=== PATIENT | male | born 1995 ===

== ENCOUNTER 2020-12-18 10:08 | Outpatient (CLI) | payer OTHER ==
[2020-12-18 10:44] VITALS: BP 103/70
--- NOTE | 2020-12-18 10:44 | SLEEP CARE CONSULTATION ---
Information from patient questionnaire entered by Belgica Das. I have reviewed and concur with the information entered by Belgica Das. This document represents the service I personally performed and the decisions made by me, Vanessa Olivia ARNP. History of Present Illness Service Date and Time: 12/18/2020 1008 Reason for Visit: New patient Chief Complaint: reports: Unrefreshed sleep, Snoring, Observed pauses in breathing, Fatigue Date of Onset: 2 years Usual bedtime: varies Time it takes to fall asleep: varies greatly Snores at night: Yes Observed to quit breathing while asleep: Yes Sleeps alone due to snoring: No Number of times waking at night: 0 Reasons for waking at night: reports: Gasping for air. denies: Choking, Snoring Toss, Turn, or Twitch while sleeping: Yes Recalls having dreams: No Usually gets out of bed at: varies Feels refreshed in the morning: No Morning headache: Yes (almost every day he wakes up) Sleepy or fatigued during the day: Yes Ever fallen asleep while driving: No Takes day naps: Yes (rarely) Dreams during day naps: No Prior sleep studies: No Additional HPI information: I had the pleasure of seeing ROMINA BOURNE today regarding the possibility of him having a sleep disorder. His current complaints are unrefreshed sleep, observed pauses in breathing and fatigue. He states that his is telling him that nearly every night he is stopping snoring and having pauses in his breathing. He is always tired and does not ever feel like he has been able to get a good night's sleep. He does have attention deficit disorder but is not on any medic ations. He states his mother just got diagnosed with sleep apnea and was started on a machine. - Parasomnia Symptoms Ever been unable to move upon waking from sleep: No Walks in sleep: No Talks in sleep: Yes Ever acted out dreams in sleep: No Ever felt weak in the knees when startled or emotional: No Bothered by creepy, crawly, restless sensations in legs: No Problems with memory or concentration: No Subjective Initial [place] Sleepiness Scale score: 8 (in 2020) Past Medical History Past Medical History: reports: Attention deficit. denies: Hypertension, Diabetes, Arrythmia, Anxiety, Depression, Mood disorder, GERD Social History The patient's occupation is active . Patient is and lives in [place]. Have you smoked in the past 12 months: Yes Cigarettes per day (20/pack): 4 Years of smokin Smoking Pack Years: 1.0 Alcohol use: Yes Alcohol amount and frequency: 6, once/month Caffeine use: Yes Caffeine amount and frequency: daily, 2 cups a day Family History Family history of sleep disordered breathing: Yes Family Hx Sleep Apnea: Mother: Snoring, Sleep apnea - Treated Allergies and Home Medications Drug allergies reviewed: Yes (NKDA) Home medication list reviewed: Yes (no medications) Review of Systems Weight gain over past 5 years: 0 Weight loss over past 5 years: 0 Cardiovascular: denies: high blood pressure Respiratory: denies: shortness of breath Gastrointestinal: denies: heartburn Neurological: reports: headaches Psychiatric: denies: anxiety, depression Ear/Nose/Throat: reports: nasal congestion (always a little from allergies), dry mouth/throat (every morning, wakes up with "terrible" dry mouth; his tonsils is also swollen occasionally), wisdom teeth removed. denies: injury to nose, tonsillectomy Immunologic: reports: allergies to food or environment Physical Exam Blood Pressure: 103/70 Cuff size: wrist Heart Rate: 55 O2 Saturation: 97 Height: 5 ft 11 in Weight: 224 lb Body Mass Index: 31.2 BMI Classification: Obese Neck circumference: 16.25 (inches) Nostrils: patent to airflow Turbinates: swollen Mouth and throat: narrow oropharynx Soft palate: long Hard palate: normal Uvula: normal Uvula visualization: 50% Mallampati Class II Tongue: enlarged in size with teeth badillo on lateral edges Tonsils: 2+ Chin and jaw: Retrognathia (mild) Neck: normal w/o lymphadenopathy or thyromegaly Heart: regular rate and rhythm Lungs: clear bilaterally Impression and Plan 1. Suspected Obstructive Sleep Apnea-Hypopnea Syndrome, as suggested by a history of loud and irregular snoring, observed cessation of breath while asleep, gasping or choking in sleep, morning headache, unrefreshed sleep, and excessive daytime sleepiness. Narrow oropharynx and obesity are common predisposing factors for obstructive sleep apnea-hypopnea syndrome. I recommend proceeding to polysomnography to confirm the diagnosis and to assess severity. If the patient has significant sleep disordered breathing, a manual CPAP titration study will also be performed to find the optimal treatment pressure. I informed the patient of what the sleep studies involve and after some discussion, obtained agreement to proceed. The pathophysiology of obstructive sleep apnea-hypopnea syndrome was discussed with the patient and health risks of cardiovascular and cerebrovascular disease if not treated. [facility] brochure for o bstructive sleep apnea-hypopnea syndrome given and reviewed. Risks of drowsy driving discussed in detail and patient advised to avoid long distance driving and to head well puller at the first sign of drowsiness. Patient agreed to plan. * Schedule polysomnography +- manual CPAP titration study and return in 1-2 weeks after the study to discuss result and initiate therapy. * Avoid long distance driving or driving when feeling sleepy. * Avoid alcohol, sedative and muscle relaxant around bedtime. * Attempt to lose weight. * Review instructions provided by trained office staff on how to prepare for the sleep study. * Return for follow-up after sleep study completed. Counseling Topics: Weight loss health impact Visit Type: In Office Time Spent with Patient (minutes): 30 Provider Statement: I spent 100% of the Face to Face Visit with the patient with greater than 50% spent counseling the patient and coordination of care.
== END 2020-12-18 10:09 | disposition home or self-care (01) ==
LOC: SC 10:08
PROVIDERS: ATTEND Nurse Practitioner Family
DX: R06.83 Snoring (principal); R06.81 Apnea, not elsewhere classified; R51.9 Headache, unspecified; G47.10 Hypersomnia, unspecified; E66.9 Obesity, unspecified; Z68.31 Body mass index [BMI] 31.0-31.9, adult
CPT/HCPCS: 99203; 99212

== ENCOUNTER 2021-01-03 15:30 | Outpatient (CLI) | payer OTHER | END 2021-01-03 15:31 | disposition home or self-care (01) | LOC: SC 15:30 | PROVIDERS: ATTEND Nurse Practitioner Family | DX: G47.33 Obstructive sleep apnea (adult) (pediatric) (principal); E66.9 Obesity, unspecified; Z68.31 Body mass index [BMI] 31.0-31.9, adult | CPT/HCPCS: 95806 ==

== ENCOUNTER 2021-01-16 16:03 | Outpatient (CLI) | payer OTHER ==
--- NOTE | 2021-01-16 16:44 | SLEEP CARE CONSULTATION ---
Information from patient questionnaire entered by Mercedes Webber. I have reviewed and concur with the information entered by Mercedes Webber. This document represents the service I personally performed and the decisions made by me, Vanessa Olivia ARNP. History of Present Illness Service Date and Time: 01/16/2021 1603 Initial [place] Sleepiness Scale score: 8 (in 2020) Current [place] Sleepiness Scale score: 4 Additional HPI information: ROMINA BOURNE returns for follow up and results of the recently performed home sleep study. He was found to have severe sleep apnea. I explained the pathophysiology behind obstructive sleep apnea. We then spent quite a bit of time discussing different treatment options. For mild obstructive sleep apnea, surgery and oral appliance are alternatives to nasal CPAP therapy but in moderate or severe cases, nasal CPAP is the most effective and reliable treatment. After some discussion, the patient opted to go with the nasal CPAP therapy. Nasal autoCPAP set at 4-15 cmH20 will be ordered with rationale explained. A manual titration study will be ordered if unable to find optimal pressure with office adjustments. I explained how CPAP machine works with sample devices Respir[employer]wings Dreamstation and RepuCare Onsite [id number] and what to expect when using the machine. Using CPAP every night in order to get used to it was emphasized. Patient advised to put CPAP mask on before getting into bed so as not to fall asleep without CPAP. To assist acclimation to CPAP use, it could also be used for a short time during day while reading or watching TV. The patient was instructed to call the CPAP supplier to discuss any mechanical problem that may occur. If the mask given is uncomfortable or is difficult to keep on through the night even with adjustment, contact the CPAP supplier as many will replace with another mask style if notified before 30 days. If snoring or perceives is not getting enough air or too much air from the machine, notify this office. [facility] patient education PAP tips reviewed and given to patient. Patient counseled not drink alcohol less than 4 hours before bedtime as it can increase snoring and apnea. Patient was cautioned about risks of drowsy driving until sleepiness symptoms resolve. Sleep Study - Results Type of Sleep Study: Home sleep study Prior sleep studies: No Polysomnography/Home Sleep Study results: Physician Impression: The quality of the study is good. The length of the study is not optimal (< 240 minutes). Please also see the tabulated and graphic data. 1. Obstructive Sleep Apnea-Hypopnea (ICD-10 G47.33), severe, with an AHI of 44.4 /hr and jorge SaO2 of 85%. During the study, the patient had 82 apneas (82 obstructive, 0 central, 0 mixed) and 26 hypopneas. The longest episode lasted 58.5 seconds. The respiratory events occurred independently of sleep stage and body position (supine AHI was 45.8 and non-supine, 43.65). 2. Hypoxemia (ICD-10 R09.02), mild, with the lowest oxygen saturation of 85 % and 1.9 minutes with SaO2 under 90%. Baseline oxygen saturation was normal (Average oxygen saturation was 93%). Allergies and Home Medications Home medication list reviewed: Yes (no changes) Review of Systems Review of systems same as previous: Yes (no changes) Physical Exam Heart Rate: 64 O2 Saturation: 98 Height: 5 ft 11 in Weight: 224 lb Body Mass Index: 31.2 BMI Classification: Obese Impression and Plan 1. Obstructive Sleep Apnea-Hypopnea Syndrome, severe, with lowest oxygen saturation of 85%. Obviously this is the cause of the patients symptoms of unrefreshed sleep, and excessive daytime sleepiness. Positive pressure therapy could benefit his overall health and reduce risks of cardiovascular and cerebrovascular adverse events as well as his attention deficit. As mentioned above, the patient will be started on nasal autoCPAP therapy with pressure set at 4-15 cmH2O. A manual titration study will be completed if unable to find optimal treatment pressure with office adjustments. Compliance guidelines also reviewed. A copy of compliance guidelines will be given for reference at check out. * Nasal auto CPAP therapy, pressure at 4-15 cm H2O. * Attempt to lose weight. * Avoid alcohol consumption near bedtime. * Avoid supine sleep until using CPAP. * The patient is again cautioned about driving until sleepiness completely resolves. * Return one month after CPAP obtained. I will assess response to therapy and compliance at that time. Counseling Topics: Weight loss health impact Visit Type: In Office Time Spent with Patient (minutes): 20 Provider Statement: I spent 100% of the Face to Face Visit with the patient with greater than 50% spent counseling the patient and coordination of care.
== END 2021-01-16 16:04 | disposition home or self-care (01) ==
LOC: SC 16:03
PROVIDERS: ATTEND Nurse Practitioner Family
DX: G47.33 Obstructive sleep apnea (adult) (pediatric) (principal); E66.9 Obesity, unspecified; Z68.31 Body mass index [BMI] 31.0-31.9, adult
CPT/HCPCS: 99212; 99213